=== PATIENT | male | born 1950 | race Caucasian/White ===

== ENCOUNTER 2021-05-03 17:25 | Inpatient (IN) | payer OTHER ==
[2021-05-03 17:41] VITALS: BMI 25.6
[2021-05-03] MEDS ORDERED: Calcium Carbonate 500 MG ChewTAB PO PRN (19:34)
[2021-05-03] MEDS ORDERED: Ondansetron PF 4 MG/2 ML Vial IVP PRN (19:34)
[2021-05-03] MEDS ORDERED: Zolpidem Tartrate 5 MG TAB PO PRN (19:34)
[2021-05-03] MEDS ORDERED: methylPREDNISolone Sod Succ/PF 125 MG/2 ML VIAL IVP SCH (19:45)
[2021-05-03] MEDS: cefTRIAXone\\ROCEPHIN 1 GM in Sodium Chloride 0.9% 100 ML IVPB SCH (22:03)
[2021-05-03] MEDS: methylPREDNISolone Sod Succ 1 GM in Sodium Chloride 0.9% 100 ML IVPB SCH (22:04)
[2021-05-03] MEDS: Atorvastatin Calcium 40 MG TAB PO SCH (22:05)
[2021-05-03] MEDS: Baclofen 10 MG TAB PO SCH (22:05)
[2021-05-03] MEDS: Oseltamivir 75 MG CAP PO SCH (22:06)
[2021-05-03] MEDS: Acetaminophen 325 MG TAB PO PRN (23:08)
[2021-05-04] MEDS: HYDROcodone/Acetaminophen 5/325 mg Tablet PO PRN ×5 (02:10→22:06)
[2021-05-04 04:54] LABS: #Monocytes 0.1 10x3/uL (0.0-1.1); #Neutrophils 3.9 10x3/uL (1.5-8.4); %Basophils 0.2 % (0.0-2.0); %Lymphocytes 7.4 % (18.0-47.0); %Monocytes 2.3 % (0.0-10.0); %Neutrophils 89.6 % (40.0-75.0); Hemoglobin 11.1 g/dL (13.5-17.5); Mean Corpuscular HGB CONC 32.6 g/dL (32.0-36.0); Mean Corpuscular Hemoglobin 28.5 pg (27.0-33.0); Mean Corpuscular Volume 87.7 fl (81.2-95.1); Mean Platelet Volume 10.2 fl (7.4-10.4); Platelet Count 316 10x3/uL (150-450); RBC Distribution Width 14.7 % (11.5-14.5); Red Blood Cell (RBC) Count 3.89 10x6/uL (4.32-5.72); White Blood Cell (WBC) Count 4.3 10x3/uL (3.5-10.5)
[2021-05-04 05:17] LABS: ALT (SGPT) 13 U/L (8-55); AST (SGOT) 20 U/L (5-34); Albumin 3.3 g/dL (3.4-4.8); Alkaline Phosphatase 82 U/L (40-110); Anion Gap 14 mmol/L (10-20); BUN (Urea Nitrogen) 12 mg/dL (8.4-25.7); Bilirubin, Total 0.2 mg/dL (0.2-1.2); Calc. Creatinine Clearance 110 mL/min (70-130); Calcium 8.7 mg/dL (7.8-10.44); Carbon Dioxide 19 mmol/L (23-31); Chloride 109 mmol/L (98-107); Globulin 2.9 g/dL (2.4-3.5); Glucose 153 mg/dL (83-110); Potassium 3.6 mmol/L (3.5-5.1); Protein, Total 6.2 g/dL (5.8-8.1); Sodium 138 mmol/L (136-145)
[2021-05-04] MEDS: Levothyroxine Sodium 25 MCG TAB PO SCH (06:19)
[2021-05-04] MEDS: Guaifenesin DM 100-10/5 ML UDCUP PO PRN ×2 (08:26→20:41)
[2021-05-04] MEDS: Enoxaparin Sodium 40 MG/0.4 ML SYRINGE SC SCH (08:26)
[2021-05-04] MEDS: Baclofen 10 MG TAB PO SCH ×2 (08:26→20:40)
[2021-05-04] MEDS: Ferrous Sulfate 325 MG TAB PO SCH (08:26)
[2021-05-04] MEDS: Aspirin 81 mg Enteric Coated Tablet PO SCH (08:26)
[2021-05-04] MEDS: Clopidogrel Bisulfate 75 MG TAB PO SCH (08:26)
[2021-05-04] MEDS: Loratadine 10 MG TAB PO SCH (08:26)
[2021-05-04] MEDS: DULoxetine 30 MG CAP PO SCH (08:26)
[2021-05-04] MEDS: Oseltamivir 75 MG CAP PO SCH ×2 (08:27→20:40)
[2021-05-04] MEDS: methylPREDNISolone Sod Succ 1 GM in Sodium Chloride 0.9% 100 ML IVPB SCH (20:38)
[2021-05-04] MEDS: cefTRIAXone\\ROCEPHIN 1 GM in Sodium Chloride 0.9% 100 ML IVPB SCH (20:39)
[2021-05-04] MEDS: Atorvastatin Calcium 40 MG TAB PO SCH (20:40)
[2021-05-05] MEDS: Levothyroxine Sodium 25 MCG TAB PO SCH (05:02)
[2021-05-05] MEDS: HYDROcodone/Acetaminophen 5/325 mg Tablet PO PRN ×3 (05:09→14:44)
[2021-05-05 05:45] LABS: #Monocytes 0.4 10x3/uL (0.0-1.1); #Neutrophils 9.1 10x3/uL (1.5-8.4); %Basophils 0.1 % (0.0-2.0); %Lymphocytes 9.2 % (18.0-47.0); %Monocytes 3.5 % (0.0-10.0); %Neutrophils 86.7 % (40.0-75.0); Hemoglobin 11.2 g/dL (13.5-17.5); Mean Corpuscular HGB CONC 32.4 g/dL (32.0-36.0); Mean Corpuscular Hemoglobin 28.5 pg (27.0-33.0); Mean Platelet Volume 10.2 fl (7.4-10.4); Platelet Count 418 10x3/uL (150-450); RBC Distribution Width 14.9 % (11.5-14.5); Red Blood Cell (RBC) Count 3.93 10x6/uL (4.32-5.72); White Blood Cell (WBC) Count 10.5 10x3/uL (3.5-10.5)
[2021-05-05 05:50] LABS: Anion Gap 15 mmol/L (10-20); BUN (Urea Nitrogen) 12 mg/dL (8.4-25.7); Calc. Creatinine Clearance 108 mL/min (70-130); Carbon Dioxide 20 mmol/L (23-31); Chloride 108 mmol/L (98-107); Glucose 162 mg/dL (83-110); Potassium 3.9 mmol/L (3.5-5.1); Sodium 139 mmol/L (136-145)
[2021-05-05] MEDS: Aspirin 81 mg Enteric Coated Tablet PO SCH (08:38)
[2021-05-05] MEDS: Ferrous Sulfate 325 MG TAB PO SCH (08:38)
[2021-05-05] MEDS: Baclofen 10 MG TAB PO SCH ×2 (08:38→21:05)
[2021-05-05] MEDS: Guaifenesin DM 100-10/5 ML UDCUP PO PRN ×2 (08:38→21:04)
[2021-05-05] MEDS: Loratadine 10 MG TAB PO SCH (08:38)
[2021-05-05] MEDS: Enoxaparin Sodium 40 MG/0.4 ML SYRINGE SC SCH (08:38)
[2021-05-05] MEDS: DULoxetine 30 MG CAP PO SCH (08:39)
[2021-05-05] MEDS: Clopidogrel Bisulfate 75 MG TAB PO SCH (08:39)
[2021-05-05] MEDS: Oseltamivir 75 MG CAP PO SCH ×2 (08:39→21:05)
[2021-05-05] MEDS: Acetaminophen 325 MG TAB PO PRN (21:05)
[2021-05-05] MEDS: Atorvastatin Calcium 40 MG TAB PO SCH (21:05)
[2021-05-05] MEDS: methylPREDNISolone Sod Succ 1 GM in Sodium Chloride 0.9% 100 ML IVPB SCH (21:06)
[2021-05-05] MEDS: cefTRIAXone\\ROCEPHIN 1 GM in Sodium Chloride 0.9% 100 ML IVPB SCH (21:06)
[2021-05-06] MEDS: HYDROcodone/Acetaminophen 5/325 mg Tablet PO PRN ×2 (06:02→09:00)
[2021-05-06] MEDS: Levothyroxine Sodium 25 MCG TAB PO SCH (06:02)
[2021-05-06 07:25] VITALS: BP 137/65; TEMP 98.2
[2021-05-06] MEDS: Loratadine 10 MG TAB PO SCH (09:00)
[2021-05-06] MEDS: Clopidogrel Bisulfate 75 MG TAB PO SCH (09:00)
[2021-05-06] MEDS: DULoxetine 30 MG CAP PO SCH (09:00)
[2021-05-06] MEDS: Ferrous Sulfate 325 MG TAB PO SCH (09:00)
[2021-05-06] MEDS: Baclofen 10 MG TAB PO SCH (09:00)
[2021-05-06] MEDS: Aspirin 81 mg Enteric Coated Tablet PO SCH (09:00)
[2021-05-06] MEDS: Enoxaparin Sodium 40 MG/0.4 ML SYRINGE SC SCH (09:00)
[2021-05-06] MEDS: Oseltamivir 75 MG CAP PO SCH (09:01)
== END 2021-05-06 14:51 | disposition home or self-care (01) | DRG 59 ==
LOC: CSHTELE 17:25 → EEVIPCON 17:25
PROVIDERS: ADMIT Family Medicine; ATTEND Hospitalist
DX: G35 Multiple sclerosis (principal); N39.0 Urinary tract infection, site not specified; Z20.822 Contact with and (suspected) exposure to COVID-19; J10.1 Influenza due to other identified influenza virus with other respiratory manifestations; I73.9 Peripheral vascular disease, unspecified; E03.9 Hypothyroidism, unspecified; Z79.82 Long term (current) use of aspirin; Z79.899 Other long term (current) drug therapy; Z88.8 Allergy status to other drugs, medicaments and biological substances; Z87.891 Personal history of nicotine dependence
CPT/HCPCS: 36415; 80048; 80053; 83880; 84443; 85025; 93970; J0696; J1650; J2930; J3490

== ENCOUNTER 2022-05-26 22:29 | Inpatient (IN) | payer OTHER ==
[2022-05-26 23:22] LABS: #Basophils 0.1 10x3/uL (0.0-0.2); #Eosinphils 0.1 10x3/uL (0.0-0.5); #Neutrophils 9.7 10x3/uL (1.5-8.4); %Basophils 0.5 % (0.0-2.0); %Eosinophils 0.9 % (0.0-6.0); %Lymphocytes 6.6 % (18.0-47.0); %Monocytes 8.2 % (0.0-10.0); %Neutrophils 83.5 % (40.0-75.0); Hemoglobin 13.1 g/dL (13.5-17.5); Mean Corpuscular HGB CONC 32.7 g/dL (32.0-36.0); Mean Corpuscular Hemoglobin 28.7 pg (27.0-33.0); Mean Corpuscular Volume 87.9 fl (81.2-95.1); Mean Platelet Volume 9.8 fl (7.4-10.4); Platelet Count 405 10x3/uL (150-450); RBC Distribution Width 14.1 % (11.5-14.5); Red Blood Cell (RBC) Count 4.56 10x6/uL (4.32-5.72); White Blood Cell (WBC) Count 11.6 10x3/uL (3.5-10.5)
[2022-05-26 23:34] LABS: ALT (SGPT) 10 U/L (8-55); AST (SGOT) 11 U/L (5-34); Albumin 3.8 g/dL (3.4-4.8); Alkaline Phosphatase 78 U/L (40-110); Anion Gap 15 mmol/L (10-20); BUN (Urea Nitrogen) 11 mg/dL (8.4-25.7); Bilirubin, Total 0.4 mg/dL (0.2-1.2); Calc. Creatinine Clearance 0 mL/min (70-130); Calcium 8.9 mg/dL (7.8-10.44); Carbon Dioxide 20 mmol/L (23-31); Chloride 108 mmol/L (98-107); Estimated GFR 93; Globulin 2.5 g/dL (2.4-3.5); Glucose 87 mg/dL (83-110); Potassium 3.9 mmol/L (3.5-5.1); Protein, Total 6.3 g/dL (5.8-8.1); Sodium 139 mmol/L (136-145)
[2022-05-26 23:41] LABS: SARS-CoV-2 NAA Rapid Test Not Detected (NotDetected)
[2022-05-27 00:58] LABS: Bilirubin Neg (Negative); Blood, Urine 25 (Negative); Clarity Cloudy (Clear); Glucose, Urine (Dipstick) Normal (Negative); Ketone, Urine Negative (Negative); Leukocyte 500 (Negative); Nitrite Positive (Negative); Protein, Urine (Dipstick) 15 mg/dl (Neg-Trace); Urobilinogen Normal mg/dL (Less than 2)
[2022-05-27 01:21] LABS: Bacteria/HPF 4+ HPF (None Seen); RBC/HPF None Seen HPF (0-3); Squamous Epithelial None Seen HPF (0-3)
[2022-05-27 01:52] LABS: Troponin I Less than 0.010 ng/mL (< 0.028)
[2022-05-27] MEDS ORDERED: Calcium Carbonate 500 MG ChewTAB PO PRN (01:52)
[2022-05-27] MEDS ORDERED: Ondansetron PF 4 MG/2 ML Vial IVP PRN (01:52)
[2022-05-27] MEDS ORDERED: Guaifenesin DM 100-10/5 ML UDCUP PO PRN (01:52)
[2022-05-27] MEDS ORDERED: Senokot S 8.6-50 MG TAB PO PRN (01:52)
[2022-05-27] MEDS ORDERED: Lactated Ringer's 500 ML IV SCH (02:15)
[2022-05-27] MEDS ORDERED: Vancomycin HCl 1 GM in Sodium Chloride 0.9% 250 ML 250 ML IVPB SCH (03:00)
[2022-05-27] MEDS ORDERED: Vancomycin 1 GM VIAL ONE (03:02)
[2022-05-27] MEDS ORDERED: cefTRIAXone\\ROCEPHIN 2 GM VIAL ONE (03:02)
[2022-05-27] MEDS ORDERED: traMADol HCl 50 MG TAB ONE ×2 (03:08→16:00)
[2022-05-27] MEDS: traMADol HCl 50 MG TAB PO PRN ×2 (03:12→16:01)
[2022-05-27] MEDS: cefTRIAXone\\ROCEPHIN 2 GM in Sodium Chloride 0.9% 100 ML IVPB SCH (03:12)
[2022-05-27] MEDS: Levothyroxine Sodium 25 MCG TAB PO SCH (06:01)
[2022-05-27] MEDS ORDERED: Clopidogrel Bisulfate 75 MG TAB ONE (09:13)
[2022-05-27] MEDS: Baclofen 10 MG TAB PO SCH ×2 (09:19→22:52)
[2022-05-27] MEDS: DULoxetine 30 MG CAP PO SCH (09:20)
[2022-05-27] MEDS: Loratadine 10 MG TAB PO SCH (09:20)
[2022-05-27] MEDS: Famotidine 20 MG TAB PO SCH ×2 (09:20→22:51)
[2022-05-27] MEDS: Clopidogrel Bisulfate 75 MG TAB PO SCH (09:20)
[2022-05-27] MEDS: Potassium Chloride 10 MEQ TAB PO SCH (09:20)
[2022-05-27] MEDS: Acetaminophen 325 MG TAB PO PRN ×2 (11:55→19:59)
[2022-05-27] MEDS ORDERED: Acetaminophen 325 MG TAB ONE ×2 (11:55→19:55)
[2022-05-28 02:25] VITALS: BMI 25.0
[2022-05-28] MEDS: traMADol HCl 50 MG TAB PO PRN ×3 (03:18→18:06)
[2022-05-28] MEDS: cefTRIAXone\\ROCEPHIN 2 GM in Sodium Chloride 0.9% 100 ML IVPB SCH (03:20)
[2022-05-28 05:26] LABS: #Basophils 0.1 10x3/uL (0.0-0.2); #Eosinphils 0.3 10x3/uL (0.0-0.5); #Monocytes 0.7 10x3/uL (0.0-1.1); #Neutrophils 3.5 10x3/uL (1.5-8.4); %Eosinophils 5.3 % (0.0-6.0); %Lymphocytes 24.9 % (18.0-47.0); %Neutrophils 56.8 % (40.0-75.0); Hemoglobin 12.5 g/dL (13.5-17.5); Mean Corpuscular HGB CONC 32.3 g/dL (32.0-36.0); Mean Corpuscular Hemoglobin 28.7 pg (27.0-33.0); Mean Platelet Volume 9.9 fl (7.4-10.4); Platelet Count 352 10x3/uL (150-450); RBC Distribution Width 14.2 % (11.5-14.5); Red Blood Cell (RBC) Count 4.35 10x6/uL (4.32-5.72); White Blood Cell (WBC) Count 6.2 10x3/uL (3.5-10.5)
[2022-05-28 05:42] LABS: Anion Gap 13 mmol/L (10-20); BUN (Urea Nitrogen) 17 mg/dL (8.4-25.7); Calc. Creatinine Clearance 110 mL/min (70-130); Calcium 8.6 mg/dL (7.8-10.44); Carbon Dioxide 22 mmol/L (23-31); Chloride 108 mmol/L (98-107); Estimated GFR 96; Glucose 90 mg/dL (83-110); Potassium 4.4 mmol/L (3.5-5.1); Sodium 139 mmol/L (136-145)
[2022-05-28] MEDS: Levothyroxine Sodium 25 MCG TAB PO SCH (06:22)
[2022-05-28] MEDS: Baclofen 10 MG TAB PO SCH ×2 (08:29→19:59)
[2022-05-28] MEDS: Famotidine 20 MG TAB PO SCH ×2 (08:29→19:59)
[2022-05-28] MEDS: Furosemide 20 MG TAB PO SCH (08:29)
[2022-05-28] MEDS: DULoxetine 30 MG CAP PO SCH (08:29)
[2022-05-28] MEDS: Clopidogrel Bisulfate 75 MG TAB PO SCH (08:29)
[2022-05-28] MEDS: Potassium Chloride 10 MEQ TAB PO SCH (08:29)
[2022-05-28] MEDS: Loratadine 10 MG TAB PO SCH (08:29)
[2022-05-28] MEDS ORDERED: COPAXONE SC SCH (09:00)
[2022-05-28] MEDS ORDERED: Morphine 4 MG/ML VIAL ONE (12:14)
[2022-05-28] MEDS ORDERED: Morphine 4 MG/ML VIAL SLOW IVP SCH (12:15)
[2022-05-29] MEDS: cefTRIAXone\\ROCEPHIN 2 GM in Sodium Chloride 0.9% 100 ML IVPB SCH (03:06)
[2022-05-29] MEDS: traMADol HCl 50 MG TAB PO PRN ×2 (03:41→08:44)
[2022-05-29] MEDS: Levothyroxine Sodium 25 MCG TAB PO SCH (06:27)
[2022-05-29] MEDS: Potassium Chloride 10 MEQ TAB PO SCH (08:42)
[2022-05-29] MEDS: Baclofen 10 MG TAB PO SCH (08:42)
[2022-05-29] MEDS: DULoxetine 30 MG CAP PO SCH (08:42)
[2022-05-29] MEDS: Famotidine 20 MG TAB PO SCH (08:42)
[2022-05-29] MEDS: Clopidogrel Bisulfate 75 MG TAB PO SCH (08:42)
[2022-05-29] MEDS: Furosemide 20 MG TAB PO SCH (08:42)
[2022-05-29] MEDS: Loratadine 10 MG TAB PO SCH (08:42)
[2022-05-29 11:46] VITALS: BP 117/58; TEMP 98.5
== END 2022-05-29 14:21 | DRG 59 ==
LOC: EEVIPCON 22:29 → CSHERS 22:29 → CSHERHOLD 05-27 01:47 → CSHTELE 05-27 20:57
PROVIDERS: ADMIT Student in an Organized Health Care Education/Training Program; ATTEND Internal Medicine
DX: G35 Multiple sclerosis (principal); N39.0 Urinary tract infection, site not specified; T83.511A Infection and inflammatory reaction due to indwelling urethral catheter, initial encounter; Y84.6 Urinary catheterization as the cause of abnormal reaction of the patient, or of later complication, without mention of misadventure at the time of the procedure; Z20.822 Contact with and (suspected) exposure to COVID-19; I73.9 Peripheral vascular disease, unspecified; L40.9 Psoriasis, unspecified; I25.10 Atherosclerotic heart disease of native coronary artery without angina pectoris; I10 Essential (primary) hypertension; G82.20 Paraplegia, unspecified; R33.9 Retention of urine, unspecified; J30.2 Other seasonal allergic rhinitis; R53.81 Other malaise; E03.9 Hypothyroidism, unspecified; Z79.899 Other long term (current) drug therapy; Z79.02 Long term (current) use of antithrombotics/antiplatelets; Z79.890 Hormone replacement therapy; Z88.8 Allergy status to other drugs, medicaments and biological substances; Z99.3 Dependence on wheelchair; Z79.82 Long term (current) use of aspirin; Z87.891 Personal history of nicotine dependence
CPT/HCPCS: 36415; 51702; 70553; 71045; 72156; 72157; 80048; 80053; 81003; 81015; 84484; 85025; 87040; 87086; 93005; 97139; J0696; J1650; J2270; J3370; J3490; J7050; J7120; U0002